=== PATIENT | male | born 1995 | race Caucasian/White ===

== ENCOUNTER 2020-09-09 05:30 | Emergency (ER) | payer OTHER | END 2020-09-09 05:35 | disposition E | LOC: ER1 05:30 | DX: S02.91XA Unspecified fracture of skull, initial encounter for closed fracture (principal); V49.40XA Driver injured in collision with unspecified motor vehicles in traffic accident, initial encounter; Y92.410 Unspecified street and highway as the place of occurrence of the external cause | CPT/HCPCS: 31500; 70250; 92950; 99285 ==